=== PATIENT | male | born 1990 | race Caucasian/White ===

== ENCOUNTER 2019-07-05 15:57 | Inpatient (IN) | payer MEDICAID ==
[~2019-07-05] VITALS: Ht 177.8 cm; Wt 70.3 kg
[2019-07-05 16:01] VITALS: BP_SYST 145
--- NOTE | 2019-07-05 16:10 | NUR ---
Placed in room 8 . Placed on ekg monitor, blood pressure machine and pulse oximeter. To gown for exam. Side rails up. Assumed care.
--- NOTE | 2019-07-05 16:10 | NUR ---
EROS Butcher at bedside examining patient.
--- NOTE | 2019-07-05 16:10 | NUR ---
Patient arrived via POV, AAOx4, accompanied by mother. Patient c/c of withdrawl. Patient has history of alcoholism. The patient states that he was binge drinking for the last 4 days, he primarily drink hard liquor, and then beer. He states he drinks approximately 1/2 pint of liquor, and 1/2 pint of beer daily. He has been on a "medina." Patient states last drink was this morning in an attempt to stop the symptoms of withdrawl. Patients associated symptoms of panic/anxiety, nausea, vomiting bile, diarrhea. Patient notes history of seizures. Patient sates he has not been recently ill, no cough, cold, or fever. Will continue to follow up and monitor.
[2019-07-05] MEDS ORDERED: LORazepam 2 MG/ML VIAL IVP ONE ×2 (16:15→17:30)
[2019-07-05] MEDS ORDERED: ONDANSETRON HCL 4 MG/2 ML VIAL IVP ONE ×2 (16:15→17:30)
[2019-07-05] MEDS ORDERED: FOLIC ACID 5 MG/ML VIAL IV ONE (16:15)
[2019-07-05] MEDS ORDERED: THIAMINE HCL 100 MG/ML VIAL IM ONE (16:15)
[2019-07-05] MEDS ORDERED: NACL 0.9% 1,000 ML IV ONE ×2 (16:15→17:45)
[2019-07-05 16:47] LABS: BASOPHILS % (AUTO) 0.3 % (0.0-2.0); EOSINOPHILS % (AUTO) 0.2 % (0.0-4.0); HEMATOCRIT 41.5 % (36-54); HEMOGLOBIN 13.9 g/dL (14.0-18.0); LYMPHOCYTES # (AUTO) 0.8 K/uL (1.0-5.5); LYMPHOCYTES % (AUTO) 11.3 % (20.5-51.5); MEAN CORPUSCULAR HEMOGLOBIN 29 pg (27-31); MEAN CORPUSCULAR HGB CONC 34 % (32-36); MEAN CORPUSCULAR VOLUME 86 fL (79.0-98.0); MONOCYTES # (AUTO) 0.4 K/uL (0.0-1.0); MONOCYTES % (AUTO) 6.1 % (1.7-9.3); NEUTROPHILS # (AUTO) 5.9 K/uL (1.8-7.7); NEUTROPHILS % (AUTO) 82.1 % (40.0-70.0); PLATELET COUNT (AUTO) 343 K/uL (130-430); RED BLOOD CELL COUNT(AUTO) 4.81 MIL/uL (4.2-6.2); RED CELL DISTRIBUTION WIDTH 13.3 % (9.0-15.0); WHITE BLOOD COUNT (AUTO) 7.2 K/uL (4.8-10.8)
[2019-07-05 16:55] LABS: ANION GAP 16 (5-15); CALCIUM 9.2 mg/dL (8.4-11.0); CHLORIDE 99 mmol/L (98-107); CREATININE 0.79 mg/dL (0.55-1.30); GLUCOSE 135 mg/dL (70-99); POTASSIUM 3.3 mmol/L (3.5-5.1); SODIUM SERUM 136 mmol/L (136-145); UREA NITROGEN, BLOOD 9 mg/dL (8-21)
[2019-07-05 16:56] LABS: GFR AFRICAN AMERICAN 149 mL/min (>90)
[2019-07-05 17:03] LABS: ALANINE AMINOTRANSFERASE 103 U/L (12-78); ALBUMIN 4.6 g/dL (3.4-4.8); ASPARTATE AMINOTRANSFERASE 74 U/L (10-37); LIPASE 113 U/L (73-393)
[2019-07-05 17:04] LABS: ALCOHOL, BLOOD < 3 mg/dL (<10)
[2019-07-05] MEDS ORDERED: POTASSIUM CHLORIDE 20 MEQ TAB.PRT.SR PO ONE (17:30)
[2019-07-05] MEDS ORDERED: ONDANSETRON HCL 4 MG/2 ML VIAL IVP PRN (18:15)
[2019-07-05] MEDS ORDERED: ACETAMINOPHEN 325 MG TABLET PO PRN (18:15)
[2019-07-05] MEDS ORDERED: HYDROcodone/ACETAMIN 5-325 MG TAB (NORCO/ VICODIN) PO PRN (18:15)
--- NOTE | 2019-07-05 18:37 | NUR ---
Patient will be admitted to care of Dr. Lopez. Admitted to Telemetry unit. Awaiting room assignment. Belongings list completed. Complete and up to date summary report printed. SBAR report to be given at bedside with opportunity for questions.
[2019-07-05 19:16] LABS: INR 1.1 (0.80-1.20); PROTHROMBIN TIME 10.6 SECS (9.5-12.5)
--- NOTE | 2019-07-05 19:21 | NUR ---
ADMISSION NOTE Received patient from ER via [facility]. Patient admitted with diagnosis of seizures. Patient is awake, alert, oriented X4. Patient oriented to hospital room, call light, toileting, pain management and safety-teach back done. Personal belongings checked and Belongings List documented. Call light within reach. Addendum: 07/05/19 at 1949 by Gemma Watters RN diagnosis of etoh withdrawal
--- NOTE | 2019-07-05 19:30 | NUR ---
OPENING NOTES RECEIVED PATIENT FROM ER FOR ALCOHOL WITHDRAWAL ACCOMPANIED BY MOTHER AT BEDSIDE. PATIENT AAO X4. BREATHING UNLABORED ON ROOM AIR. NO C/O PAIN AT THIS TIME. RFA IV LINE INTACT. VITAL SIGNS STABLE. BED IN LOWEST LOCKED POSITION WITH ALARM ON. SIDE RAILS PADDED FOR SEIZURE PRECAUTIONS. PATIENT ORIENTED TO ROOM, CALL LIGHT SYSTEM TV REMOTE AND BED CONTROLS.
[2019-07-05 19:33] LABS: THYROID STIMULATING HORMONE 1.5 uIu/mL (0.36-3.74)
[2019-07-05 19:50] VITALS: BP_SYST 120
[2019-07-05] MEDS ORDERED: LORazepam 1 MG TABLET PO PRN (21:00)
[2019-07-05] MEDS ORDERED: LORazepam 2 MG/ML VIAL IVP PRN (21:00)
[2019-07-05] MEDS: DOCUSATE SODIUM 100 MG CAPSULE PO SCH (21:00)
--- NOTE | 2019-07-05 22:00 | NUR ---
ROUNDS PATIENT RESTING IN BED. NO DISTRESS NOTED. CALL LIGHT WITH IN REACH.
[2019-07-05 23:00] VITALS: BP_SYST 133
[2019-07-05] MEDS: NACL 0.9% 1,000 ML IV SCH (23:00)
--- NOTE | 2019-07-05 23:00 | NUR ---
IVF PATIENT STARTED ON NS @ 100 ML/HR ORDERED. TOLERATING PO FLUIDS AT THIS TIME. NO C/O NAUSEA OR VOMITING.
--- NOTE | 2019-07-06 01:00 | NUR ---
ROUNDS PATIENT RESTING IN BED. BREATHING UNLABORED. IVF INFUSING. CALL LIGHT WITH IN REACH.
--- NOTE | 2019-07-06 04:09 | NUR ---
ROUNDS PATIENT CONDITION UNCHANGED. NO DISTRESS NOTED.
[2019-07-06 06:16] LABS: CHOLESTEROL 178 mg/dL (<200); HDL CHOLESTEROL 76 mg/dL (>45); LDL CHOLESTEROL 89 mg/dL (<100); TRIGLYCERIDES 48 mg/dL (30-150)
--- NOTE | 2019-07-06 06:25 | NUR ---
NAUSEATED PATIENT MEDICATED WITH ZOFRAN FOR C/O NAUSEA AND ATIVAN 1 MG PO FOR C/O OF ANXIETY/TREMORS.
--- NOTE | 2019-07-06 06:36 | NUR ---
CLOSING NOTES PATIENT RESTING IN BED. NO DISTRESS NOTED. IVF INFUSING WITH IV LINE INTACT. PATIENT NEEDS ATTENDED. BED IN LOWEST LOCKED POSITION. SEIZURE PRECAUTIONS IN PLACED. PATIENT REFUSED TO WEAR HOSPITAL GOWN.
--- NOTE | 2019-07-06 07:43 | NUR ---
INITIAL NOTE PT RESTING IN BED, NO ACUTE DISTRESS NOTED, BREATHING EVEN AND UNLABORED. MOTHER AT BEDSIDE. IVF INFUSING WELL. CALL LIGHT WITHIN REACH, BED IN LOW AND LOCKED POSITION WITH BED ALARM ON.
[2019-07-06 08:00] VITALS: BP_SYST 134
[2019-07-06] MEDS: NACL 0.9% 1,000 ML IV SCH (08:40)
[2019-07-06] MEDS: DOCUSATE SODIUM 100 MG CAPSULE PO SCH ×2 (08:41→09:00)
[2019-07-06] MEDS ORDERED: THIAMINE HCL 100 MG TABLET PO SCH (09:00)
[2019-07-06] MEDS ORDERED: MULTIVITAMINS TAB 1 TABLET PO SCH (09:00)
[2019-07-06] MEDS ORDERED: FOLIC ACID 1 MG TABLET PO SCH (09:00)
--- NOTE | 2019-07-06 09:40 | NUR ---
RN ROUNDS PT RESTING IN BED, BREATHING EVEN AND UNLABORED, NO ACUTE DISTRESS NOTED. MOTHER AT BEDSIDE.
--- NOTE | 2019-07-06 11:20 | NUR ---
DR. TOMAS SPOKE WITH MD AT NURSING STATION. INFORMED MD THAT PT HAS MILD SHAKES AND REFUSES ATIVAN AT THIS TIME, US ABDOMEN WAS DONE AND RESULTS WERE READ TO . TO KEEP PT ONE MORE NIGHT AND CONTINUE POC.
--- NOTE | 2019-07-06 11:34 | NUR ---
SS NOTE/DCP: WILDLIFE BIOLOGY TECHNICIAN was referred by nursing to see patient for ETOH/DCP. Demographic information updated (phone # [phone]). WILDLIFE BIOLOGY TECHNICIAN met with patient and patient's mother at bedside. WILDLIFE BIOLOGY TECHNICIAN informed pt of reason for visit; pt requested to be interviewed alone, mother waited in the ICU waiting room. Pt is a 29 year old single male who came in via ED via private vehicle for "seizure" or alcohol withdrawal. Pt was cooperative during the interview. Pt appeared to be well-groomed, normal mood and affect were appropriate for the situation. Pt's thought process were intact (able to answer inquires), good eye contact and normal speech. Pt was alert and oriented x4 (person, place, time, situation). Pt lives with his 62 year old handicap father. 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 Pt moved here from the [place]" a month ago. Pt does not have a source of income but states "mom gives me money for the meanwhile". Pt is independent with ADL's and does not utilize any DME and no PCP in the area. Per patient, he has been drinking for 10 years now but prior to admission, he was binge drinking since Saturday (06/29) through Saturday (07/04). Pt has history of binge drinking 3x in the past. Pt states he drinks beer, whisky and vodka but this current binge is a mixture of beer with vodka. Pt states his trigger for drinking is "boredom". Pt states on Saturday, he was sweating profusely, anxiety, and seizures, prompting him to come in. Pt admits having a problem with alcohol and is willing to get help, "after the holidays". Pt states he had DUI in 2016 and was ordered to attend AA meetings; pt finished the mandate. Pt denies problems with the law currently. Pt states he goes to AA meetings from 1x/week to 1x/month, and less this time around due to moving in [place] from the [place] a month ago. Pt states AA meetings "helps a little bit" and is planning to go back to AA once settled in his new home. Pt states he has undiagnosed depression and anxiety and is not seeing a therapist currently or in the past. Per mom, pt's father is also an alcoholic and at one point, was homeless for 10 years and a substance abuser. Pt states he has a good relationship with his parents but states "I know my parents are scared I might ". Pt identifies his mother as his support system. Pt states his goal is to "avoid alcohol 100%". WILDLIFE BIOLOGY TECHNICIAN re-educated pt on the importance of unsafe detox; pt understood. WILDLIFE BIOLOGY TECHNICIAN provided pt with Substance abuse facilities/[facility] detox facilities, [facility] and [facility] list. No further SS needs identified at this time, but WILDLIFE BIOLOGY TECHNICIAN will remain available for emotional support and when needed.
--- NOTE | 2019-07-06 11:40 | NUR ---
RN ROUNDS PT RESTING IN BED, NO ACUTE DISTRESS NOTED, MOTHER AT BEDSIDE. WILL CONTINUE TO MONITOR.
--- NOTE | 2019-07-06 13:44 | NUR ---
SPOKE W/ DR. TOMAS CLARIFIED WITH MD THAT PT IS CLEARED TO BE DISCHARGE TODAY. MD WILL PUT IN NEW PRESCRIPTIONS. VERIFIED DISCHARGE ORDER WITH TELEPHONE READ BACK.
[2019-07-06 13:47] VITALS: BP_SYST 133
[2019-07-06] MEDS ORDERED: LIB10 PO (13:49)
[2019-07-06 14:02] VITALS: BP_SYST 133
--- NOTE | 2019-07-06 14:26 | NUR ---
DISCHARGE DISCHARGE PACKET WITH INSTRUCTIONS AND PRESCRIPTIONS GIVEN TO PT. ALL BELONGINGS WITH PT. IV CATHETER REMOVED, CATHETER INTACT, NO BLEEDING. ID HOSPITAL BAND REMOVED. EDUCATED PT ON SAFETY AND USE OF WHEELCHAIR. PT VERBALIZED UNDERSTANDING, PT REFUSING WHEELCHAIR. PT AMBULATES WITH STEADY GAIT. ESCORTED PT TO HOSPITAL PARKING ALONGSIDE MOTHER, DUGLAS WHO WILL BE TAKING PT HOME IN PRIVATE AUTO.
== END 2019-07-06 14:26 | disposition home or self-care (01) | DRG 280 ==
LOC: SED 15:57 → STU 18:37
PROVIDERS: ADMIT Student in an Organized Health Care Education/Training Program; ATTEND Student in an Organized Health Care Education/Training Program
DX: K70.30 Alcoholic cirrhosis of liver without ascites (principal); E87.1 Hypo-osmolality and hyponatremia; F10.10 Alcohol abuse, uncomplicated; F41.9 Anxiety disorder, unspecified; R74.0 Nonspecific elevation of levels of transaminase and lactic acid dehydrogenase [LDH]; Z82.49 Family history of ischemic heart disease and other diseases of the circulatory system; Z83.3 Family history of diabetes mellitus; Z71.41 Alcohol abuse counseling and surveillance of alcoholic
CPT/HCPCS: 36415; 71045; 76700-TC; 80053; 80061; 82140-TC; 83036; 83605; 83690-TC; 83735-TC; 83880; 84100-TC; 84443-TC; 84484; 85025; 85610-TC; 85730-TC; 93005; 96361; 96374; 96375; 96376; 99285; G0378; G0482; J2060; J2405; J3411; J3490; J7030

== ENCOUNTER 2019-09-02 07:38 | Emergency (ER) | payer MEDICAID ==
[~2019-09-02] VITALS: Ht 177.8 cm; Wt 65.8 kg
[~2019-09-02 07:38] MED LIST: LIB10 PO
[2019-09-02 07:40] VITALS: BP_SYST 132
[2019-09-02 09:00] VITALS: BP_SYST 132
== END 2019-09-02 09:00 | disposition home or self-care (01) ==
LOC: SED 07:38
DX: S42.031A Displaced fracture of lateral end of right clavicle, initial encounter for closed fracture (principal); X58.XXXA Exposure to other specified factors, initial encounter; Y93.J2 Activity, drum and other percussion instrument playing; Y92.89 Other specified places as the place of occurrence of the external cause; Y99.8 Other external cause status
CPT/HCPCS: 73030; 99283

== ENCOUNTER 2019-10-25 13:44 | Emergency (ER) | payer MEDICAID ==
[~2019-10-25] VITALS: Ht 172.7 cm; Wt 59.0 kg
[2019-10-25 13:57] VITALS: BP_SYST 134
[2019-10-25] MEDS ORDERED: NACL 0.9% 1,000 ML IV ONE ×2 (14:04→17:00)
[2019-10-25] MEDS ORDERED: FOLIC ACID 1 MG, THIAMINE HCL 100 MG, MAGNESIUM SULFATE 1 GM, MVI 10 ML in NACL 0.9% 1,... IV ONE (14:15)
[2019-10-25] MEDS ORDERED: ONDANSETRON HCL 4 MG/2 ML VIAL IVP ONE (14:15)
[2019-10-25] MEDS ORDERED: THIAMINE HCL 100 MG/ML VIAL ONE (14:34)
[2019-10-25] MEDS ORDERED: MAGNESIUM SULFATE 1 GM/2 ML VIAL ONE (14:34)
[2019-10-25] MEDS ORDERED: FOLIC ACID 5 MG/ML VIAL IV ONE (14:34)
[2019-10-25 15:03] LABS: BASOPHILS % (AUTO) 0.3 % (0.0-2.0); EOSINOPHILS # (AUTO) 0.1 K/uL (0.0-0.4); EOSINOPHILS % (AUTO) 2.2 % (0.0-4.0); HEMATOCRIT 41.6 % (36-54); HEMOGLOBIN 13.7 g/dL (14.0-18.0); LYMPHOCYTES # (AUTO) 1.2 K/uL (1.0-5.5); MEAN CORPUSCULAR HEMOGLOBIN 28 pg (27-31); MEAN CORPUSCULAR HGB CONC 33 % (32-36); MEAN CORPUSCULAR VOLUME 86 fL (79.0-98.0); MONOCYTES # (AUTO) 0.4 K/uL (0.0-1.0); MONOCYTES % (AUTO) 8.3 % (1.7-9.3); NEUTROPHILS # (AUTO) 3.1 K/uL (1.8-7.7); NEUTROPHILS % (AUTO) 64.2 % (40.0-70.0); PLATELET COUNT (AUTO) 333 K/uL (130-430); RED BLOOD CELL COUNT(AUTO) 4.82 MIL/uL (4.2-6.2); RED CELL DISTRIBUTION WIDTH 13.2 % (9.0-15.0); WHITE BLOOD COUNT (AUTO) 4.8 K/uL (4.8-10.8)
[2019-10-25 15:08] LABS: PROTHROMBIN TIME 9.9 SECS (9.5-12.5)
[2019-10-25 15:24] LABS: ANION GAP 17 (5-15); CALCIUM 8.5 mg/dL (8.4-11.0); CHLORIDE 99 mmol/L (98-107); CREATININE 0.81 mg/dL (0.55-1.30); GLUCOSE 92 mg/dL (70-99); POTASSIUM 3.5 mmol/L (3.5-5.1); SODIUM SERUM 138 mmol/L (136-145); UREA NITROGEN, BLOOD 7 mg/dL (8-21)
[2019-10-25 15:26] LABS: GFR AFRICAN AMERICAN 145 mL/min (>90)
[2019-10-25 15:43] LABS: ALANINE AMINOTRANSFERASE 107 U/L (12-78); ALBUMIN 4.7 g/dL (3.4-4.8); ALCOHOL, BLOOD 163 mg/dL (<10); AMYLASE 40 U/L (0-100); ASPARTATE AMINOTRANSFERASE 97 U/L (10-37); LIPASE 96 U/L (73-393); TOTAL BILIRUBIN 0.8 mg/dL (0.0-1.0)
[2019-10-25 15:45] LABS: ACETAMINOPHEN < 1 ug/mL (1-30)
[2019-10-25 16:13] LABS: CKMB RELATIVE INDEX 0.9 (0.0-2.9); CREATINE KINASE MB 3.3 ng/mL (0-3.6)
[2019-10-25 16:26] LABS: BILIRUBIN,URINE NEGATIVE (NEGATIVE); BLOOD, URINE NEGATIVE (NEGATIVE); CLARITY/URINE CLEAR (CLEAR); COLOR,URINE YELLOW (YELLOW); GLUCOSE,URINE NEGATIVE (NEGATIVE); KETONES,URINE 3+ (NEGATIVE); LEUKOCYTE ESTERASE ,URINE NEGATIVE (NEGATIVE); NITRITE, URINE NEGATIVE (NEGATIVE); PROTEIN URINE 1+ (NEGATIVE); UROBILINOGEN,URINE 0.2 (0.2-1.0)
[2019-10-25 16:52] LABS: WBC,URINE 0-3 /HPF (0-3)
[2019-10-25 16:53] LABS: BACTERIA,URINE FEW /HPF (None Seen); YEAST,URINE Few /HPF (None Seen)
[2019-10-25 16:54] LABS: TRICHOMONAS,URINE None Seen /HPF (None Seen)
[2019-10-25 17:03] LABS: BENZODIAZEPINE, URINE POSITIVE (NEG <=150)
[2019-10-25 17:04] LABS: BARBITURATE, URINE NEGATIVE (NEG <=200); COCAINE, URINE NEGATIVE (NEG <=150); METHAMPHETAMINES SCREEN,URINE NEGATIVE (NEG <=500); URINE AMPHETAMINE NEGATIVE (NEG <=500); URINE METHADONE NEGATIVE (NEG <=200)
[2019-10-25 17:05] LABS: CANNABINOID, URINE POSITIVE (NEG <=50); OPIATE, URINE NEGATIVE (NEG <=100); PHENCYCLIDINE SCREEN,URINE NEGATIVE (NEG <=25); UR TRICYCLIC ANTIDEPRESSANTS NEGATIVE (NEG <=300); URINE OXYCODONE SCREEN NEGATIVE (NEG <=100); URINE PROPOXYPHENE SCREEN NEGATIVE (NEG <=300)
[2019-10-25 17:52] VITALS: BP_SYST 119
== END 2019-10-25 17:52 | disposition home or self-care (01) ==
LOC: SED 13:44
DX: F10.239 Alcohol dependence with withdrawal, unspecified (principal); F41.9 Anxiety disorder, unspecified; R74.0 Nonspecific elevation of levels of transaminase and lactic acid dehydrogenase [LDH]; K70.10 Alcoholic hepatitis without ascites; F12.10 Cannabis abuse, uncomplicated; Y90.6 Blood alcohol level of 120-199 mg/100 ml; Z79.899 Other long term (current) drug therapy
CPT/HCPCS: 36415; 80053; 80307; 81000; 82150; 82550; 82553; 83605; 83690; 84484; 85025; 85610; 85730; 87040; 93005; 96365; 96366; 96375; 99284; G0480; G0481; G0482; J2405; J7030; J3411; J3475; J3490

== ENCOUNTER 2019-12-21 07:47 | Emergency (ER) | payer MEDICAID ==
[~2019-12-21] VITALS: Ht 177.8 cm; Wt 65.8 kg
[2019-12-21 07:53] VITALS: BP_SYST 155
--- NOTE | 2019-12-21 07:53 | NUR ---
Patient to ER bed 03 to gown for evaluation. Side rails up.
--- NOTE | 2019-12-21 07:55 | NUR ---
Patient arrived in the ED c/o alcohol withdrawal that started this morning, last drink was at 1900 yesterday - Vodka. Took Librium at 0600 today. Denied any chest pain or shortness of breath. Denied any fevers, chills, or vomiting. Patient is alert and oriented x4, respirations even and unlabored, speaking in full sentences, and ambulating with a steady gait. VSS, pain level 7/10. Informed of the approximate wait time. Instructed to notify ED staff for any changes in condition or worsening of symptoms. Patient verbalized understanding.
--- NOTE | 2019-12-21 08:05 | NUR ---
ER Dr. Nguyễn at bedside examining patient.
--- NOTE | 2019-12-21 08:06 | NUR ---
# 18 gauge angiocath placed to LAC. Use of asceptic technique. Opsite placed over site. Blood return noted. Flushed with 10 cc of normal saline. No evidence of infiltration noted. Patient tolerated well.
--- NOTE | 2019-12-21 08:13 | NUR ---
Administered Ativan IVP and NS as ordered by Dr. Nguyễn. Patient tolerated the medications well. See eMAR for details.
[2019-12-21] MEDS ORDERED: LORazepam 2 MG/ML VIAL IVP ONE (08:15)
[2019-12-21] MEDS ORDERED: NACL 0.9% 1,000 ML IV ONE (08:15)
[2019-12-21 08:18] LABS: BASOPHILS % (AUTO) 0.4 % (0.0-2.0); EOSINOPHILS % (AUTO) 0.6 % (0.0-4.0); HEMATOCRIT 42.6 % (36-54); HEMOGLOBIN 14.3 g/dL (14.0-18.0); LYMPHOCYTES # (AUTO) 0.7 K/uL (1.0-5.5); LYMPHOCYTES % (AUTO) 11.7 % (20.5-51.5); MEAN CORPUSCULAR HEMOGLOBIN 29 pg (27-31); MEAN CORPUSCULAR HGB CONC 34 % (32-36); MEAN CORPUSCULAR VOLUME 86 fL (79.0-98.0); MONOCYTES # (AUTO) 0.4 K/uL (0.0-1.0); MONOCYTES % (AUTO) 7.3 % (1.7-9.3); NEUTROPHILS # (AUTO) 4.5 K/uL (1.8-7.7); PLATELET COUNT (AUTO) 281 K/uL (130-430); RED BLOOD CELL COUNT(AUTO) 4.96 MIL/uL (4.2-6.2); RED CELL DISTRIBUTION WIDTH 14.3 % (9.0-15.0); WHITE BLOOD COUNT (AUTO) 5.6 K/uL (4.8-10.8)
[2019-12-21 08:41] LABS: CALCIUM 9.1 mg/dL (8.4-11.0); CREATININE 0.81 mg/dL (0.55-1.30); POTASSIUM 3.8 mmol/L (3.5-5.1)
[2019-12-21 09:11] VITALS: BP_SYST 131
--- NOTE | 2019-12-21 09:11 | NUR ---
Patient given written and verbal discharge instructions and verbalizes understanding. ER MD discussed with patient the results and treatment provided. Patient in stable condition. ID arm band removed. IV catheter removed intact and dressing applied, no active bleeding. Rx of Ativan given. Patient educated on pain management and to follow up with PMD. Pain Scale 0/10. Opportunity for questions provided and answered. Medication side effect fact sheet provided.
== END 2019-12-21 09:11 | disposition home or self-care (01) ==
LOC: SED 07:47
DX: F10.239 Alcohol dependence with withdrawal, unspecified (principal); R11.2 Nausea with vomiting, unspecified; Y90.9 Presence of alcohol in blood, level not specified
CPT/HCPCS: 36415; 80048; 85025; 96361; 96374; 99283; J2060; J7030

== ENCOUNTER 2020-01-04 10:32 | Emergency (ER) | payer MEDICAID ==
[~2020-01-04] VITALS: Ht 177.8 cm; Wt 68.0 kg
[2020-01-04 10:37] VITALS: BP_SYST 132
--- NOTE | 2020-01-04 10:47 | NUR ---
Patient to ER bed 7 to gown for evaluation. Side rails up.
--- NOTE | 2020-01-04 10:48 | NUR ---
Patient came from home for evaluation. Patient is a daily drinker who is complaining of mild abdominal pain, nausea, vomiting, bright red bloody stool since this morning.
--- NOTE | 2020-01-04 11:00 | NUR ---
ER at bedside examining patient.
[2020-01-04 11:11] LABS: BASOPHILS % (AUTO) 0.8 % (0.0-2.0); EOSINOPHILS % (AUTO) 0.4 % (0.0-4.0); HEMATOCRIT 41.8 % (36-54); HEMOGLOBIN 13.6 g/dL (14.0-18.0); LYMPHOCYTES # (AUTO) 0.8 K/uL (1.0-5.5); LYMPHOCYTES % (AUTO) 19.2 % (20.5-51.5); MEAN CORPUSCULAR HEMOGLOBIN 29 pg (27-31); MEAN CORPUSCULAR HGB CONC 33 % (32-36); MEAN CORPUSCULAR VOLUME 88 fL (79.0-98.0); MONOCYTES # (AUTO) 0.3 K/uL (0.0-1.0); MONOCYTES % (AUTO) 6.7 % (1.7-9.3); NEUTROPHILS # (AUTO) 3.1 K/uL (1.8-7.7); NEUTROPHILS % (AUTO) 72.9 % (40.0-70.0); PLATELET COUNT (AUTO) 466 K/uL (130-430); RED BLOOD CELL COUNT(AUTO) 4.75 MIL/uL (4.2-6.2); RED CELL DISTRIBUTION WIDTH 14.9 % (9.0-15.0); WHITE BLOOD COUNT (AUTO) 4.2 K/uL (4.8-10.8)
[2020-01-04] MEDS ORDERED: PANTOPRAZOLE SODIUM 40 MG/VIAL (PROTONIX) IVP ONE (11:11)
[2020-01-04 11:28] LABS: CALCIUM 8.9 mg/dL (8.4-11.0); CREATININE 0.79 mg/dL (0.55-1.30); POTASSIUM 3.9 mmol/L (3.5-5.1)
[2020-01-04 11:29] LABS: PROTHROMBIN TIME 9.8 SECS (9.5-12.5)
[2020-01-04 11:34] LABS: ALBUMIN 4.6 g/dL (3.4-4.8); TOTAL BILIRUBIN 0.4 mg/dL (0.0-1.0)
[2020-01-04] MEDS ORDERED: NACL 0.9% 1,000 ML IV ONE (11:45)
[2020-01-04] MEDS ORDERED: ONDANSETRON HCL 4 MG/2 ML VIAL IVP ONE (11:45)
[2020-01-04] MEDS ORDERED: LIDOCAINE 1%, 20 ML MDV 20 ML ONE (12:10)
[2020-01-04 13:36] VITALS: BP_SYST 122
--- NOTE | 2020-01-04 13:39 | NUR ---
Patient given written and verbal discharge instructions and verbalizes understanding. ER MD discussed with patient the results and treatment provided. Patient in stable condition. ID arm band removed. IV catheter removed intact and dressing applied, no active bleeding. Rx of Pepcid given. Patient educated on pain management and to follow up with PMD. Pain Scale 0/10 Opportunity for questions provided and answered. Medication side effect fact sheet provided.
== END 2020-01-04 13:36 | disposition home or self-care (01) ==
LOC: SED 10:32
DX: K29.20 Alcoholic gastritis without bleeding (principal); R11.2 Nausea with vomiting, unspecified; F10.229 Alcohol dependence with intoxication, unspecified; F17.210 Nicotine dependence, cigarettes, uncomplicated; F12.90 Cannabis use, unspecified, uncomplicated; Y90.0 Blood alcohol level of less than 20 mg/100 ml
CPT/HCPCS: 36415; 80053; 85025; 85610; 85730; 96361; 96374; 96375; 99284; C9113; G0482; J2001; J2405; J7030

== ENCOUNTER 2020-02-21 10:42 | Emergency (ER) | payer MEDICAID ==
[~2020-02-21] VITALS: Ht 177.8 cm; Wt 65.8 kg
[2020-02-21 10:55] VITALS: BP_SYST 141
[2020-02-21 11:21] LABS: BASOPHILS % (AUTO) 0.3 % (0.0-2.0); EOSINOPHILS % (AUTO) 0.6 % (0.0-4.0); HEMATOCRIT 43.3 % (36-54); HEMOGLOBIN 14.1 g/dL (14.0-18.0); LYMPHOCYTES # (AUTO) 0.9 K/uL (1.0-5.5); LYMPHOCYTES % (AUTO) 13.4 % (20.5-51.5); MEAN CORPUSCULAR HEMOGLOBIN 29 pg (27-31); MEAN CORPUSCULAR HGB CONC 33 % (32-36); MEAN CORPUSCULAR VOLUME 88 fL (79.0-98.0); MONOCYTES # (AUTO) 0.3 K/uL (0.0-1.0); NEUTROPHILS # (AUTO) 5.6 K/uL (1.8-7.7); NEUTROPHILS % (AUTO) 81.7 % (40.0-70.0); PLATELET COUNT (AUTO) 342 K/uL (130-430); RED BLOOD CELL COUNT(AUTO) 4.94 MIL/uL (4.2-6.2); WHITE BLOOD COUNT (AUTO) 6.9 K/uL (4.8-10.8)
[2020-02-21 11:33] LABS: CALCIUM 9.2 mg/dL (8.4-11.0); CREATININE 0.83 mg/dL (0.55-1.30); POTASSIUM 3.6 mmol/L (3.5-5.1)
[2020-02-21] MEDS: KCL 20 mEq in 100 mL (PREMIX) 100 ML IV ONE (11:36)
[2020-02-21] MEDS: NACL 0.9% 2,000 ML IV ONE (11:37)
[2020-02-21] MEDS: HALOPERIDOL LACTATE 5 MG/ML VIAL IVP ONE (11:37)
[2020-02-21] MEDS: METOCLOPRAMIDE HCL 10 MG/2 ML VIAL IVP ONE (11:38)
[2020-02-21 11:39] LABS: ALBUMIN 4.8 g/dL (3.4-4.8); TOTAL BILIRUBIN 0.9 mg/dL (0.0-1.0)
[2020-02-21 14:57] VITALS: BP_SYST 126
== END 2020-02-21 14:58 | disposition home or self-care (01) ==
LOC: SED 10:42
DX: F10.239 Alcohol dependence with withdrawal, unspecified (principal); F12.929 Cannabis use, unspecified with intoxication, unspecified; R11.2 Nausea with vomiting, unspecified; Y90.0 Blood alcohol level of less than 20 mg/100 ml; Z79.899 Other long term (current) drug therapy
CPT/HCPCS: 36415; 80053; 85025; 96361; 96374; 96375; 99284; G0482; J1630; J2765; J3480; J7030

== ENCOUNTER 2020-03-08 13:04 | Emergency (ER) | payer MEDICAID ==
[~2020-03-08] VITALS: Ht 175.3 cm; Wt 68.0 kg
[2020-03-08 13:11] VITALS: BP_SYST 121
--- NOTE | 2020-03-08 13:14 | NUR ---
pt placed to bed 5 with right hand wraped. bleeding controlled. C/O having a Laceration and called 911.
[2020-03-08] MEDS ORDERED: LIDOCAINE 1% 10 MG/ML, 20 ML MDV INJ ONE (13:30)
--- NOTE | 2020-03-08 13:32 | NUR ---
DR BECK IN TO ASSESS
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
--- NOTE | 2020-03-08 13:40 | NUR ---
LAC TO RIGHT THUMB, BLEEDING MODERATLY, DR. BECK AT THE BEDSIDE FOR SUTURES. PT TOLERATING WELL
[2020-03-08] MEDS ORDERED: BACITRACIN 1 GM OINT TP ONE (14:19)
--- NOTE | 2020-03-08 14:27 | NUR ---
LAC IRRIGATED, BACITRACIN APPLIED, DRESSING APPLIED
--- NOTE | 2020-03-08 14:27 | NUR ---
Patient given written and verbal discharge instructions and verbalizes understanding. ER MD discussed with patient the results and treatment provided. Patient in stable condition. ID arm band removed. . Patient educated on pain management and to follow up with PMD. Pain Scale 0/10. Opportunity for questions provided and answered. Medication side effect fact sheet provided.
[2020-03-08 14:28] VITALS: BP_SYST 121
== END 2020-03-08 14:28 | disposition home or self-care (01) ==
LOC: SED 13:04
DX: S61.011A Laceration without foreign body of right thumb without damage to nail, initial encounter (principal); G40.909 Epilepsy, unspecified, not intractable, without status epilepticus; W26.0XXA Contact with knife, initial encounter; Y93.89 Activity, other specified; Y92.89 Other specified places as the place of occurrence of the external cause; Y99.8 Other external cause status
CPT/HCPCS: 12002; 99282; J2001

== ENCOUNTER 2020-03-10 10:32 | Emergency (ER) | payer MEDICAID ==
[~2020-03-10] VITALS: Ht 177.8 cm; Wt 61.2 kg
[2020-03-10 10:39] VITALS: BP_SYST 136
[2020-03-10 10:54] VITALS: BP_SYST 136
== END 2020-03-10 10:55 | disposition home or self-care (01) ==
LOC: SED 10:32
DX: S61.011D Laceration without foreign body of right thumb without damage to nail, subsequent encounter (principal); F10.229 Alcohol dependence with intoxication, unspecified; X58.XXXD Exposure to other specified factors, subsequent encounter
CPT/HCPCS: 99282

== ENCOUNTER 2020-03-18 09:21 | Emergency (ER) | payer MEDICAID ==
[~2020-03-18] VITALS: Ht 175.3 cm; Wt 63.5 kg
[2020-03-18 09:31] VITALS: BP_SYST 145
--- NOTE | 2020-03-18 09:38 | NUR ---
Patient to ER bed 04 to gown for evaluation. Side rails up.
--- NOTE | 2020-03-18 09:40 | NUR ---
Pt walked in to ER with c/o hand pain 01/28. Reports punching a wall last night. Denies any other trauma. V/S stable, pt is afebrile. Currently sitting at bedside, will continue to monitor.
--- NOTE | 2020-03-18 09:45 | NUR ---
Kb chan in [facility] - 03/18/20 at 1055 by [email or web address] EROS Thomson at bedside examining patient.
--- NOTE | 2020-03-18 09:45 | NUR ---
ER at bedside examining patient.
--- NOTE | 2020-03-18 09:47 | NUR ---
Pt ambulated to x-ray accompanied by staff.
[2020-03-18] MEDS ORDERED: KETOROLAC TROMETHAMINE 60 MG/2 ML VIAL IM ONE (10:15)
--- NOTE | 2020-03-18 11:20 | NUR ---
Ulnar Gutter splint applied to Left hand. + pulse noted. Capillary refill <3 seconds. Patient has ability to move non-splinted digits. Has sensation present to affected site. Skin color within normal limits. Applied for pain management control.
[2020-03-18 11:28] VITALS: BP_SYST 145
--- NOTE | 2020-03-18 11:29 | NUR ---
Patient given written and verbal discharge instructions and verbalizes understanding. ER MD discussed with patient the results and treatment provided. Patient in stable condition. ID arm band removed. No prescriptions given. Patient educated on pain management and to follow up with PMD. Pain Scale 0. Opportunity for questions provided and answered. Medication side effect fact sheet provided.
== END 2020-03-18 11:29 | disposition home or self-care (01) ==
LOC: SED 09:21
DX: S62.343A Nondisplaced fracture of base of third metacarpal bone, left hand, initial encounter for closed fracture (principal); S60.221A Contusion of right hand, initial encounter; F12.90 Cannabis use, unspecified, uncomplicated; Z79.899 Other long term (current) drug therapy; W22.8XXA Striking against or struck by other objects, initial encounter; Y93.89 Activity, other specified; Y92.89 Other specified places as the place of occurrence of the external cause; Y99.8 Other external cause status
CPT/HCPCS: 29125; 73130; 96372; 99283; J1885

== ENCOUNTER 2020-04-15 08:36 | Emergency (ER) | payer MEDICAID ==
[~2020-04-15] VITALS: Ht 177.8 cm; Wt 65.8 kg
[2020-04-15 08:40] VITALS: BP_SYST 143
--- NOTE | 2020-04-15 08:44 | NUR ---
Patient to ER bed 03 to gown for evaluation. Side rails up.
--- NOTE | 2020-04-15 08:45 | NUR ---
Pt walked in to ER with c/o hiccups x4 days and is concerned bc reports he has surgery coming up. V/S stable, pt is afebrile. Currently resting in bed, will continue to monitor.
--- NOTE | 2020-04-15 08:55 | NUR ---
EROS Mueller at bedside examining patient.
[2020-04-15 08:59] VITALS: BP_SYST 143
== END 2020-04-15 09:00 | disposition home or self-care (01) ==
LOC: SED 08:36
DX: R06.6 Hiccough (principal); F10.229 Alcohol dependence with intoxication, unspecified
CPT/HCPCS: 99281

== ENCOUNTER 2020-05-27 08:49 | Emergency (ER) | payer MEDICAID ==
[~2020-05-27] VITALS: Ht 177.8 cm; Wt 65.8 kg
[2020-05-27 08:55] VITALS: BP_SYST 132
[2020-05-27 11:05] VITALS: BP_SYST 132
[2020-05-27] MEDS ORDERED: BACITRACIN 1 GM OINT TP ONE (11:16)
== END 2020-05-27 11:05 | disposition home or self-care (01) ==
LOC: SED 08:49
DX: S01.111A Laceration without foreign body of right eyelid and periocular area, initial encounter (principal); S09.8XXA Other specified injuries of head, initial encounter; F10.229 Alcohol dependence with intoxication, unspecified; W22.8XXA Striking against or struck by other objects, initial encounter; Y93.89 Activity, other specified; Y92.89 Other specified places as the place of occurrence of the external cause; Y99.8 Other external cause status
CPT/HCPCS: 70160-TC; 99283

== ENCOUNTER 2021-02-28 13:10 | Emergency (ER) | payer MEDICAID ==
[~2021-02-28] VITALS: Ht 177.8 cm; Wt 68.0 kg
[2021-02-28 13:21] VITALS: BP_SYST 100
[2021-02-28 14:15] LABS: BASOPHILS % (AUTO) 0.5 % (0.0-2.0); EOSINOPHILS % (AUTO) 0.4 % (0.0-4.0); HEMATOCRIT 40.7 % (36-54); HEMOGLOBIN 13.5 g/dL (14.0-18.0); LYMPHOCYTES # (AUTO) 0.7 K/uL (1.0-5.5); LYMPHOCYTES % (AUTO) 14.2 % (20.5-51.5); MEAN CORPUSCULAR HEMOGLOBIN 28 pg (27-31); MEAN CORPUSCULAR HGB CONC 33 % (32-36); MEAN CORPUSCULAR VOLUME 84 fL (79.0-98.0); MONOCYTES # (AUTO) 0.2 K/uL (0.0-1.0); MONOCYTES % (AUTO) 4.3 % (1.7-9.3); NEUTROPHILS # (AUTO) 4.2 K/uL (1.8-7.7); NEUTROPHILS % (AUTO) 80.6 % (40.0-70.0); PLATELET COUNT (AUTO) 301 K/uL (130-430); RED BLOOD CELL COUNT(AUTO) 4.86 MIL/uL (4.2-6.2); RED CELL DISTRIBUTION WIDTH 15.2 % (9.0-15.0); WHITE BLOOD COUNT (AUTO) 5.2 K/uL (4.8-10.8)
[2021-02-28] MEDS: NACL 0.9% 2,000 ML IV ONE (14:20)
[2021-02-28] MEDS: ONDANSETRON HCL 4 MG/2 ML VIAL IVP ONE (14:21)
[2021-02-28] MEDS: LORazepam 2 MG/ML VIAL IVP ONE (14:21)
[2021-02-28 14:26] LABS: ANION GAP 18 (5-15); CALCIUM 9.4 mg/dL (8.4-11.0); CHLORIDE 94 mmol/L (98-107); CREATININE 0.76 mg/dL (0.55-1.30); GLUCOSE 86 mg/dL (70-99); POTASSIUM 3.7 mmol/L (3.5-5.1); SODIUM SERUM 135 mmol/L (136-145); UREA NITROGEN, BLOOD 6 mg/dL (8-21)
[2021-02-28 14:30] LABS: GFR AFRICAN AMERICAN 155 mL/min (>90); PROTHROMBIN TIME 10.3 SECS (9.5-12.5)
[2021-02-28 14:32] LABS: ALANINE AMINOTRANSFERASE 117 U/L (12-78); ALBUMIN 4.5 g/dL (3.4-4.8); AMYLASE 64 U/L (0-100); ASPARTATE AMINOTRANSFERASE 107 U/L (10-37); LIPASE 119 U/L (73-393); TOTAL BILIRUBIN 1.1 mg/dL (0.0-1.0)
[2021-02-28 14:36] LABS: ALCOHOL, BLOOD < 3 mg/dL (<10)
[2021-02-28 14:49] LABS: ACETONE, SERUM NEGATIVE (NEGATIVE)
[2021-02-28] MEDS ORDERED: LORA-259 PO (15:16)
[2021-02-28 16:00] VITALS: BP_SYST 100
== END 2021-02-28 15:55 | disposition home or self-care (01) ==
LOC: SED 13:10
DX: F10.239 Alcohol dependence with withdrawal, unspecified (principal); Z79.899 Other long term (current) drug therapy; Y90.0 Blood alcohol level of less than 20 mg/100 ml
CPT/HCPCS: 36415; 80053; 82009; 82150; 83605; 83690; 85025; 85610; 85730; 96361; 96374; 96375; 99284; G0482; J2060; J2405; J7030

== ENCOUNTER 2022-04-18 11:51 | Emergency (ER) | payer MEDICAID ==
[~2022-04-18] VITALS: Ht 175.3 cm; Wt 68.0 kg
[~2022-04-18 11:51] MED LIST changes: +CHLO10CA7 PO; -LIB10 PO; +LORA-259 PO
[2022-04-18 12:21] VITALS: BP_SYST 138
[2022-04-18 12:45] LABS: BASOPHILS % (AUTO) 0.5 % (0.0-2.0); EOSINOPHILS # (AUTO) 0.1 K/uL (0.0-0.4); EOSINOPHILS % (AUTO) 1.1 % (0.0-4.0); HEMATOCRIT 43.2 % (36-54); LYMPHOCYTES # (AUTO) 1.4 K/uL (1.0-5.5); LYMPHOCYTES % (AUTO) 26.3 % (20.5-51.5); MEAN CORPUSCULAR VOLUME 88 fL (79.0-98.0); MONOCYTES # (AUTO) 0.3 K/uL (0.0-1.0); MONOCYTES % (AUTO) 5.6 % (1.7-9.3); NEUTROPHILS # (AUTO) 3.6 K/uL (1.8-7.7); NEUTROPHILS % (AUTO) 66.5 % (40.0-70.0); PLATELET COUNT (AUTO) 343 K/uL (130-430); RED BLOOD CELL COUNT(AUTO) 4.91 MIL/uL (4.2-6.2); RED CELL DISTRIBUTION WIDTH 13.5 % (9.0-15.0); WHITE BLOOD COUNT (AUTO) 5.3 K/uL (4.8-10.8)
[2022-04-18 13:07] LABS: ANION GAP 21 (5-15); CALCIUM 8.9 mg/dL (8.4-11.0); CHLORIDE 97 mmol/L (98-107); CREATININE 0.79 mg/dL (0.55-1.30); GLUCOSE 89 mg/dL (70-99); UREA NITROGEN, BLOOD 8 mg/dL (8-21)
[2022-04-18 13:13] LABS: GFR AFRICAN AMERICAN 146 mL/min (>90)
[2022-04-18 13:21] LABS: ALANINE AMINOTRANSFERASE 171 U/L (12-78); ALBUMIN 4.6 g/dL (3.4-4.8); ALCOHOL, BLOOD 371 mg/dL (<10); AMYLASE 38 U/L (0-100); ASPARTATE AMINOTRANSFERASE 129 U/L (10-37); LIPASE 141 U/L (73-393); TOTAL BILIRUBIN 0.8 mg/dL (0.0-1.0)
[2022-04-18 14:18] LABS: ACETONE, SERUM TRACE (NEGATIVE)
== END 2022-04-18 13:00 | disposition left against medical advice (07) ==
LOC: SED 11:51
DX: E87.2 Acidosis (principal); R10.84 Generalized abdominal pain; R11.2 Nausea with vomiting, unspecified; F41.9 Anxiety disorder, unspecified; Z79.899 Other long term (current) drug therapy
CPT/HCPCS: 99283; 80053; 82009; 82150; 83690; 85025; 36415; 83605; G0482

== ENCOUNTER 2022-04-18 17:13 | Emergency (ER) | payer MEDICAID ==
[~2022-04-18] VITALS: Ht 170.2 cm; Wt 73.5 kg
[2022-04-18 17:15] VITALS: BP_SYST 144
--- NOTE | 2022-04-18 17:15 | NUR ---
Patient to ER bed 07 to gown for evaluation. Side rails up.
--- NOTE | 2022-04-18 17:30 | NUR ---
RECEIVED PT FROM [facility]. PT WAS BIBS FOR ETOH WITHDRAWEL. RESP E/U. NO R/A. PT HAS N/V. IV CATH PLACED TO RFA 20. SITE WNL. PT DENIES PAIN. SIDE RAILS UP X2.
[2022-04-18] MEDS ORDERED: ONDANSETRON HCL 4 MG/2 ML VIAL IVP ONE (18:00)
[2022-04-18] MEDS ORDERED: NACL 0.9% 1,000 ML IV ONE (18:00)
[2022-04-18] MEDS ORDERED: LORazepam 2 MG/ML VIAL IVP ONE (18:00)
[2022-04-18] MEDS ORDERED: FOLIC ACID 1 MG, THIAMINE HCL 100 MG, MAGNESIUM SULFATE 1 GM, MVI 10 ML in NACL 0.9% 1,... IV ONE (18:00)
--- NOTE | 2022-04-18 18:00 | NUR ---
Note undone in EDM - 04/18/22 at 1804 by [email or web address] RECEIVED PT FROM [facility]. PT BIBS WITH C/O MECH FALL, PT FELL TO BACK, PT PRESENTS WITH SWELLING TO UPPER CHEST. PT IS AAOX4. RESP E/U. ON R/A. NORMAL S1S2 NOTED. DENIES N/V/D/C. SKIN CDI. DISTAL PULSES NORMAL. DENIES PAIN AT THIS TIME.
--- NOTE | 2022-04-18 18:06 | NUR ---
ER at bedside examining patient.
[2022-04-18 18:45] LABS: BASOPHILS # (AUTO) 0.1 K/uL (0.0-0.2); BASOPHILS % (AUTO) 1.1 % (0.0-2.0); EOSINOPHILS # (AUTO) 0.1 K/uL (0.0-0.4); EOSINOPHILS % (AUTO) 1.6 % (0.0-4.0); HEMATOCRIT 43.3 % (36-54); LYMPHOCYTES # (AUTO) 2.1 K/uL (1.0-5.5); LYMPHOCYTES % (AUTO) 35.8 % (20.5-51.5); MEAN CORPUSCULAR VOLUME 88 fL (79.0-98.0); MONOCYTES # (AUTO) 0.3 K/uL (0.0-1.0); MONOCYTES % (AUTO) 4.9 % (1.7-9.3); NEUTROPHILS # (AUTO) 3.3 K/uL (1.8-7.7); NEUTROPHILS % (AUTO) 56.6 % (40.0-70.0); PLATELET COUNT (AUTO) 345 K/uL (130-430); RED BLOOD CELL COUNT(AUTO) 4.92 MIL/uL (4.2-6.2); RED CELL DISTRIBUTION WIDTH 13.8 % (9.0-15.0); WHITE BLOOD COUNT (AUTO) 5.8 K/uL (4.8-10.8)
[2022-04-18 18:52] LABS: ANION GAP 23 (5-15); CALCIUM 9.1 mg/dL (8.4-11.0); CHLORIDE 94 mmol/L (98-107); GFR AFRICAN AMERICAN 126 mL/min (>90); GLUCOSE 103 mg/dL (70-99); POTASSIUM 3.5 mmol/L (3.5-5.1); UREA NITROGEN, BLOOD 3 mg/dL (8-21)
[2022-04-18] MEDS ORDERED: LORazepam 2 MG/ML VIAL ONE (18:54)
--- NOTE | 2022-04-18 18:55 | NUR ---
SCHEDULED MEDS GIVEN AND TOLERATED WELL.
[2022-04-18 19:09] LABS: ALANINE AMINOTRANSFERASE 159 U/L (12-78); ALBUMIN 4.8 g/dL (3.4-4.8); ALCOHOL, BLOOD 193 mg/dL (<10); ASPARTATE AMINOTRANSFERASE 127 U/L (10-37)
[2022-04-18 19:10] LABS: ACETAMINOPHEN < 1 ug/mL (1-30)
--- NOTE | 2022-04-18 19:22 | NUR ---
PT ENDORSED TO [facility]. ALL QUESTIONS AND CONCERNS ADDRESSED.
[2022-04-18] MEDS ORDERED: THIAMINE HCL 100 MG, MAGNESIUM SULFATE 1 GM in NS 100 ML IV ONE (19:30)
[2022-04-18] MEDS ORDERED: FOLIC ACID 1 MG, MVI 10 ML in NACL 0.9% 1,000 ML IV ONE (19:30)
[2022-04-18 23:55] VITALS: BP_SYST 111
--- NOTE | 2022-04-18 23:57 | NUR ---
Patient to be transferred to [facility]. Receiving facility has accepting physician and available space. ER physician has signed transfer form. Patient or responsible green party has agreed to transfer and signed form. Patient belongings inventoried and will be sent with patient. Copy of nursing notes, lab reports, EKG, Physicians Orders and X-rays to be sent with patient. Report called to Italo GUY at receiving facility. Report also given to ambulance staff. Pt left a/ox4, VSS.
== END 2022-04-18 23:55 | disposition admitted as inpatient to this hospital (09) ==
LOC: SED 17:13
DX: R11.2 Nausea with vomiting, unspecified (principal); F10.239 Alcohol dependence with withdrawal, unspecified; E87.2 Acidosis; R94.5 Abnormal results of liver function studies; Z81.1 Family history of alcohol abuse and dependence; Z79.899 Other long term (current) drug therapy; Z20.822 Contact with and (suspected) exposure to COVID-19; Y90.6 Blood alcohol level of 120-199 mg/100 ml
CPT/HCPCS: 99285; 96365; 96375; 96361; 87426; 80053; 85025; 36415; 96368; G0482; J3490; J2060; J3475; J2405; J3411; J7030; G0480; G0481

== ENCOUNTER 2022-09-30 07:43 | Emergency (ER) | payer MEDICAID ==
[~2022-09-30] VITALS: Ht 172.7 cm; Wt 80.7 kg
[2022-09-30 07:49] VITALS: BP_SYST 165
[2022-09-30] MEDS ORDERED: LORazepam 2 MG/ML VIAL IVP ONE (08:00)
[2022-09-30] MEDS ORDERED: NACL 0.9% 2,000 ML IV ONE (08:00)
[2022-09-30 08:11] LABS: BASOPHILS % (AUTO) 0.5 % (0.0-2.0); EOSINOPHILS % (AUTO) 0.8 % (0.0-4.0); HEMATOCRIT 40.3 % (36-54); HEMOGLOBIN 13.5 g/dL (14.0-18.0); LYMPHOCYTES # (AUTO) 1.5 K/uL (1.0-5.5); LYMPHOCYTES % (AUTO) 26.5 % (20.5-51.5); MEAN CORPUSCULAR HEMOGLOBIN 27 pg (27-31); MEAN CORPUSCULAR HGB CONC 33 % (32-36); MEAN CORPUSCULAR VOLUME 81 fL (79.0-98.0); MONOCYTES # (AUTO) 0.5 K/uL (0.0-1.0); MONOCYTES % (AUTO) 8.8 % (1.7-9.3); NEUTROPHILS # (AUTO) 3.5 K/uL (1.8-7.7); NEUTROPHILS % (AUTO) 63.4 % (40.0-70.0); PLATELET COUNT (AUTO) 338 K/uL (130-430); RED BLOOD CELL COUNT(AUTO) 4.96 MIL/uL (4.2-6.2); RED CELL DISTRIBUTION WIDTH 14.2 % (9.0-15.0); WHITE BLOOD COUNT (AUTO) 5.5 K/uL (4.8-10.8)
[2022-09-30 08:26] LABS: ANION GAP 20 (5-15); CALCIUM 8.8 mg/dL (8.4-11.0); CHLORIDE 97 mmol/L (98-107); CREATININE 0.84 mg/dL (0.55-1.30); GLUCOSE 102 mg/dL (70-99); UREA NITROGEN, BLOOD 11 mg/dL (8-21)
[2022-09-30 08:29] LABS: ALANINE AMINOTRANSFERASE 166 U/L (12-78); ALBUMIN 3.9 g/dL (3.4-4.8); ALCOHOL, BLOOD 53 mg/dL (<10); AMYLASE 75 U/L (0-100); ASPARTATE AMINOTRANSFERASE 96 U/L (10-37); LIPASE 194 U/L (73-393); TOTAL BILIRUBIN 0.8 mg/dL (0.0-1.0)
[2022-09-30 08:30] LABS: GFR AFRICAN AMERICAN 136 mL/min (>90)
[2022-09-30 09:06] LABS: ACETONE, SERUM NEGATIVE (NEGATIVE)
[2022-09-30 09:56] VITALS: BP_SYST 131
[2022-09-30] MEDS ORDERED: LORA-259 PO (12:07)
== END 2022-09-30 15:59 | disposition home or self-care (01) ==
LOC: SED 07:43
DX: F10.10 Alcohol abuse, uncomplicated (principal); F41.9 Anxiety disorder, unspecified; R11.2 Nausea with vomiting, unspecified; Z79.899 Other long term (current) drug therapy; Y90.6 Blood alcohol level of 120-199 mg/100 ml
CPT/HCPCS: 99283; 96374; 96361; 80053; 82009; 82150; 83690; 85025; 36415; 83605; G0482; J2060; J7030

== ENCOUNTER 2023-01-26 23:25 | Emergency (ER) | payer MEDICAID ==
[~2023-01-26] VITALS: Ht 177.8 cm; Wt 68.0 kg
[2023-01-26 23:25] VITALS: BP_SYST 155; PULSE 127; RESP 24; TEMP 98; O2SAT 97
[2023-01-27] MEDS ORDERED: NACL 0.9% 1,000 ML IV ONE
[2023-01-27] MEDS ORDERED: ONDANSETRON HCL 4 MG/2 ML VIAL IVP ONE
[2023-01-27] MEDS ORDERED: LIB25 PO (00:40)
[2023-01-27] MEDS ORDERED: ONDA8TAB60 PO (00:40)
[2023-01-27 01:17] VITALS: BP_SYST 115; PULSE 97; RESP 24; TEMP 98.3; O2SAT 99
== END 2023-01-27 01:29 | disposition home or self-care (01) ==
LOC: SED 23:25
DX: F10.239 Alcohol dependence with withdrawal, unspecified (principal); R50.9 Fever, unspecified; R11.2 Nausea with vomiting, unspecified; Z79.899 Other long term (current) drug therapy; Z20.822 Contact with and (suspected) exposure to COVID-19; Y90.6 Blood alcohol level of 120-199 mg/100 ml
CPT/HCPCS: 99283; 96374; J2405

== ENCOUNTER 2023-04-28 17:28 | Inpatient (IN) | payer MEDICAID ==
[~2023-04-28] VITALS: Ht 162.6 cm; Wt 61.2 kg
[~2023-04-28 17:28] MED LIST changes: -CHLO10CA7 PO; -LORA-259 PO; +THIA100T70 PO
[2023-04-28 17:39] VITALS: BP_SYST 124; PULSE 90; RESP 20; TEMP 98.3; O2SAT 96
[2023-04-28] MEDS ORDERED: ONDANSETRON HCL 4 MG/2 ML VIAL IVP ONE (18:45)
[2023-04-28] MEDS ORDERED: LORazepam 2 MG/ML VIAL IVP ONE (18:45)
[2023-04-28] MEDS ORDERED: NACL 0.9% 1,000 ML IV ONE (18:45)
[2023-04-28 18:51] LABS: ALANINE AMINOTRANSFERASE 95 U/L (12-78); ALBUMIN 4.8 g/dL (3.4-4.8); ALCOHOL, BLOOD 57 mg/dL (<10); ANION GAP 18 (5-15); ASPARTATE AMINOTRANSFERASE 78 U/L (10-37); CALCIUM 8.7 mg/dL (8.4-11.0); CARBON DIOXIDE 24 mmol/L (23-29); CHLORIDE 95 mmol/L (98-107); GFR AFRICAN AMERICAN 143 mL/min (>90); GFR NON AFRICAN-AMERICAN 118 mL/min (>90); GLUCOSE 96 mg/dL (74-106); POTASSIUM 3.5 mmol/L (3.5-5.1); SALICYLATE 1 mg/dL (3-30); SODIUM SERUM 137 mmol/L (136-145); TOTAL BILIRUBIN 0.6 mg/dL (0.0-1.0); TOTAL PROTEIN, SERUM 8.6 g/dL (6.4-8.3); UREA NITROGEN, BLOOD 6 mg/dL (8-21)
[2023-04-28 18:53] LABS: ACETAMINOPHEN < 1 ug/mL (1-30)
[2023-04-28 18:56] LABS: BASOPHILS % (AUTO) 0.2 % (0.0-2.0); EOSINOPHILS # (AUTO) 0.1 K/uL (0.0-0.4); HEMATOCRIT 42.2 % (36-54); HEMOGLOBIN 13.8 g/dL (14.0-18.0); LYMPHOCYTES % (AUTO) 15.9 % (20.5-51.5); MEAN CORPUSCULAR HEMOGLOBIN 29 pg (27-31); MEAN CORPUSCULAR HGB CONC 33 % (32-36); MEAN CORPUSCULAR VOLUME 87 fL (79.0-98.0); MONOCYTES # (AUTO) 0.7 K/uL (0.0-1.0); MONOCYTES % (AUTO) 10.9 % (1.7-9.3); NEUTROPHILS # (AUTO) 4.6 K/uL (1.8-7.7); PLATELET COUNT (AUTO) 260 K/uL (130-430); RED BLOOD CELL COUNT(AUTO) 4.84 MIL/uL (4.2-6.2); RED CELL DISTRIBUTION WIDTH 13.2 % (9.0-15.0); WHITE BLOOD COUNT (AUTO) 6.3 K/uL (4.8-10.8)
[2023-04-28] MEDS ORDERED: LORazepam 2 MG/ML VIAL IVP PRN (23:30)
[2023-04-29 07:35] LABS: BASOPHILS % (AUTO) 0.2 % (0.0-2.0); EOSINOPHILS # (AUTO) 0.1 K/uL (0.0-0.4); HEMATOCRIT 41.7 % (36-54); HEMOGLOBIN 13.3 g/dL (14.0-18.0); LYMPHOCYTES # (AUTO) 1.1 K/uL (1.0-5.5); LYMPHOCYTES % (AUTO) 21.3 % (20.5-51.5); MEAN CORPUSCULAR HEMOGLOBIN 28 pg (27-31); MEAN CORPUSCULAR HGB CONC 32 % (32-36); MEAN CORPUSCULAR VOLUME 88 fL (79.0-98.0); MONOCYTES # (AUTO) 0.5 K/uL (0.0-1.0); MONOCYTES % (AUTO) 10.2 % (1.7-9.3); NEUTROPHILS # (AUTO) 3.5 K/uL (1.8-7.7); NEUTROPHILS % (AUTO) 66.3 % (40.0-70.0); PLATELET COUNT (AUTO) 248 K/uL (130-430); RED BLOOD CELL COUNT(AUTO) 4.75 MIL/uL (4.2-6.2); RED CELL DISTRIBUTION WIDTH 13.6 % (9.0-15.0); WHITE BLOOD COUNT (AUTO) 5.3 K/uL (4.8-10.8)
[2023-04-29 07:55] LABS: CALCIUM 7.3 mg/dL (8.4-11.0); CREATININE 0.63 mg/dL (0.55-1.30); POTASSIUM 3.5 mmol/L (3.5-5.1)
[2023-04-29] MEDS: chlordiazePOXIDE HCL 25 MG CAPSULE PO SCH ×3 (09:24→23:25)
[2023-04-29 10:23] VITALS: BP_SYST 127; PULSE 71; RESP 18; TEMP 97.6
[2023-04-29 10:36] VITALS: O2SAT 99
[2023-04-29] MEDS ORDERED: HYDROcodone/ACETAMIN 5-325 MG TAB (NORCO/ VICODIN) PO PRN ×2 (11:45)
[2023-04-29] MEDS ORDERED: NALOXONE HCL 0.4 MG/ML AMP (NARCAN) IVP PRN ×2 (11:45)
[2023-04-29] MEDS ORDERED: ONDANSETRON HCL 4 MG/2 ML VIAL IVP PRN (11:45)
[2023-04-29] MEDS ORDERED: HYDROcodone/ACETAMIN 10-325 MG TAB PO PRN (11:45)
[2023-04-29] MEDS ORDERED: FOLIC ACID 1 MG, THIAMINE HCL 100 MG, MAGNESIUM SULFATE 1 GM, MVI 10 ML in NACL 0.9% 1,... IV SCH (11:45)
[2023-04-29] MEDS ORDERED: ACETAMINOPHEN 325 MG TABLET PO PRN (11:45)
[2023-04-29] MEDS ORDERED: THIAMINE HCL 100 MG, MAGNESIUM SULFATE 1 GM in NS 100 ML IV SCH (14:00)
[2023-04-29] MEDS ORDERED: FOLIC ACID 1 MG, MVI 10 ML in NACL 0.9% 1,000 ML IV SCH (14:00)
[2023-04-29 16:00] VITALS: BP_SYST 124; PULSE 84; RESP 18; TEMP 97
[2023-04-30] VITALS: BP_SYST 128; PULSE 86; RESP 18; TEMP 97.6; O2SAT 97
[2023-04-30 02:38] VITALS: O2SAT 97
[2023-04-30 06:07] LABS: BASOPHILS % (AUTO) 0.4 % (0.0-2.0); EOSINOPHILS # (AUTO) 0.2 K/uL (0.0-0.4); EOSINOPHILS % (AUTO) 5.1 % (0.0-4.0); HEMATOCRIT 43.9 % (36-54); HEMOGLOBIN 13.9 g/dL (14.0-18.0); LYMPHOCYTES # (AUTO) 1.1 K/uL (1.0-5.5); LYMPHOCYTES % (AUTO) 23.6 % (20.5-51.5); MEAN CORPUSCULAR HEMOGLOBIN 28 pg (27-31); MEAN CORPUSCULAR HGB CONC 32 % (32-36); MEAN CORPUSCULAR VOLUME 89 fL (79.0-98.0); MONOCYTES # (AUTO) 0.3 K/uL (0.0-1.0); MONOCYTES % (AUTO) 6.5 % (1.7-9.3); NEUTROPHILS % (AUTO) 64.4 % (40.0-70.0); PLATELET COUNT (AUTO) 221 K/uL (130-430); RED BLOOD CELL COUNT(AUTO) 4.95 MIL/uL (4.2-6.2); RED CELL DISTRIBUTION WIDTH 13.3 % (9.0-15.0); WHITE BLOOD COUNT (AUTO) 4.7 K/uL (4.8-10.8)
[2023-04-30 07:01] LABS: CALCIUM 7.7 mg/dL (8.4-11.0); CREATININE 0.58 mg/dL (0.55-1.30); POTASSIUM 3.4 mmol/L (3.5-5.1)
[2023-04-30 08:00] VITALS: O2SAT 99
[2023-04-30] MEDS: chlordiazePOXIDE HCL 25 MG CAPSULE PO SCH (09:18)
[2023-04-30] MEDS ORDERED: chlordiazePOXIDE HCL 25 MG CAPSULE PO SCH (21:00)
== END 2023-04-30 16:00 | disposition left against medical advice (07) | DRG 425 ==
LOC: SED 17:28 → STU 23:24
PROVIDERS: ADMIT Specialist; ATTEND Specialist
DX: E87.8 Other disorders of electrolyte and fluid balance, not elsewhere classified (principal); F10.139 Alcohol abuse with withdrawal, unspecified; Z53.29 Procedure and treatment not carried out because of patient's decision for other reasons; Y90.9 Presence of alcohol in blood, level not specified
CPT/HCPCS: 36415; 71045; 80048; 80053; 83690; 85025; 93005; 96361; 96374; 96375; 99285; G0378; G0480; G0481; G0482; J2060; J2405; J3411; J3475; J3490; J7030

== ENCOUNTER 2023-05-31 08:30 | Emergency (ER) | payer MEDICAID ==
[~2023-05-31] VITALS: Ht 177.8 cm; Wt 68.0 kg
[2023-05-31 08:36] VITALS: BP_SYST 134; PULSE 92; RESP 18; TEMP 98.3; O2SAT 100
[2023-05-31] MEDS ORDERED: NACL 0.9% 2,000 ML IV ONE (08:45)
[2023-05-31] MEDS ORDERED: LORazepam 2 MG/ML VIAL IVP ONE (08:45)
[2023-05-31 08:54] LABS: BASOPHILS % (AUTO) 0.5 % (0.0-2.0); EOSINOPHILS # (AUTO) 0.1 K/uL (0.0-0.4); EOSINOPHILS % (AUTO) 0.9 % (0.0-4.0); HEMATOCRIT 42.8 % (36-54); HEMOGLOBIN 13.6 g/dL (14.0-18.0); LYMPHOCYTES # (AUTO) 1.5 K/uL (1.0-5.5); LYMPHOCYTES % (AUTO) 26.1 % (20.5-51.5); MEAN CORPUSCULAR HEMOGLOBIN 28 pg (27-31); MEAN CORPUSCULAR HGB CONC 32 % (32-36); MEAN CORPUSCULAR VOLUME 88 fL (79.0-98.0); MONOCYTES # (AUTO) 0.4 K/uL (0.0-1.0); MONOCYTES % (AUTO) 6.3 % (1.7-9.3); NEUTROPHILS # (AUTO) 3.8 K/uL (1.8-7.7); NEUTROPHILS % (AUTO) 66.2 % (40.0-70.0); PLATELET COUNT (AUTO) 279 K/uL (130-430); RED BLOOD CELL COUNT(AUTO) 4.89 MIL/uL (4.2-6.2); RED CELL DISTRIBUTION WIDTH 14.1 % (9.0-15.0); WHITE BLOOD COUNT (AUTO) 5.8 K/uL (4.8-10.8)
[2023-05-31 09:07] LABS: ACETONE, SERUM NEGATIVE (NEGATIVE)
[2023-05-31 09:10] LABS: ANION GAP 21 (5-15); CARBON DIOXIDE 21 mmol/L (23-29); CHLORIDE 96 mmol/L (98-107); CREATININE 0.81 mg/dL (0.55-1.30); GFR AFRICAN AMERICAN 141 mL/min (>90); GFR NON AFRICAN-AMERICAN 117 mL/min (>90); GLUCOSE 85 mg/dL (74-106); POTASSIUM 3.3 mmol/L (3.5-5.1); SODIUM SERUM 138 mmol/L (136-145); UREA NITROGEN, BLOOD 6 mg/dL (8-21)
[2023-05-31 09:14] LABS: ALANINE AMINOTRANSFERASE 106 U/L (12-78); ALBUMIN 4.5 g/dL (3.4-4.8); ALCOHOL, BLOOD 67 mg/dL (<10); AMYLASE 46 U/L (0-100); ASPARTATE AMINOTRANSFERASE 145 U/L (10-37); LIPASE 39 U/L (16-77); PROTHROMBIN TIME 10.7 SECS (9.5-12.5); TOTAL BILIRUBIN 0.8 mg/dL (0.0-1.0); TOTAL PROTEIN, SERUM 7.8 g/dL (6.4-8.3)
[2023-05-31] MEDS ORDERED: ONDANSETRON HCL 4 MG/2 ML VIAL IVP ONE (09:15)
[2023-05-31] MEDS ORDERED: LORA-259 PO ×2 (11:01→11:28)
[2023-05-31 12:39] VITALS: BP_SYST 106; PULSE 89; RESP 16; TEMP 97.6; O2SAT 95
== END 2023-05-31 12:38 | disposition home or self-care (01) ==
LOC: SED 08:30
DX: F10.10 Alcohol abuse, uncomplicated (principal); R11.10 Vomiting, unspecified; R10.9 Unspecified abdominal pain; Z79.899 Other long term (current) drug therapy; Y90.6 Blood alcohol level of 120-199 mg/100 ml
CPT/HCPCS: 99284; 96374; 96361; 96375; 80053; 82009; 82150; 83690; 85025; 85610; 85730; 36415; 83605; G0482; J2060; J2405; J7030

== ENCOUNTER 2023-11-28 10:21 | Emergency (ER) | payer MEDICAID ==
[~2023-11-28] VITALS: Ht 177.8 cm; Wt 65.8 kg
[2023-11-28 10:21] VITALS: BP_SYST 137; PULSE 88; RESP 18; TEMP 96.5; O2SAT 98
[~2023-11-28 10:21] MED LIST changes: +LORA-259 PO
[2023-11-28] MEDS ORDERED: THIAMINE HCL 200 MG/2 ML VIAL ONE (10:52)
[2023-11-28] MEDS: NACL 0.9% 1,000 ML IV ONE (10:57)
[2023-11-28] MEDS: PHENobarbital SODIUM 65 MG/ML VIAL IVP ONE (10:59)
[2023-11-28] MEDS: ONDANSETRON HCL 4 MG/2 ML VIAL IVP ONE (11:00)
[2023-11-28] MEDS: FAMOTIDINE PF 20 MG/2 ML VIAL IVP ONE (11:00)
[2023-11-28] MEDS: FOLIC ACID 5 MG/ML VIAL IV ONE (11:01)
[2023-11-28] MEDS: THIAMINE HCL 100 MG in NS 50 ML IV ONE (11:01)
[2023-11-28 11:19] LABS: BASOPHILS % (AUTO) 0.3 % (0.0-2.0); EOSINOPHILS % (AUTO) 0.2 % (0.0-4.0); HEMATOCRIT 43.3 % (36-54); HEMOGLOBIN 14.6 g/dL (14.0-18.0); LYMPHOCYTES # (AUTO) 1.4 K/uL (1.0-5.5); LYMPHOCYTES % (AUTO) 15.9 % (20.5-51.5); MEAN CORPUSCULAR HEMOGLOBIN 28 pg (27-31); MEAN CORPUSCULAR HGB CONC 34 % (32-36); MEAN CORPUSCULAR VOLUME 84 fL (79.0-98.0); MONOCYTES # (AUTO) 0.6 K/uL (0.0-1.0); MONOCYTES % (AUTO) 6.8 % (1.7-9.3); NEUTROPHILS # (AUTO) 6.7 K/uL (1.8-7.7); NEUTROPHILS % (AUTO) 76.8 % (40.0-70.0); PLATELET COUNT (AUTO) 323 K/uL (130-430); RED BLOOD CELL COUNT(AUTO) 5.18 MIL/uL (4.2-6.2); RED CELL DISTRIBUTION WIDTH 15.6 % (9.0-15.0); WHITE BLOOD COUNT (AUTO) 8.8 K/uL (4.8-10.8)
[2023-11-28 11:26] LABS: ALBUMIN 4.6 g/dL (3.4-4.8); BILIRUBIN,DIRECT 0.4 mg/dL (0.0-0.3); CALCIUM 8.9 mg/dL (8.4-11.0); CREATININE 0.83 mg/dL (0.55-1.30); POTASSIUM 3.5 mmol/L (3.5-5.1); TOTAL BILIRUBIN 1.5 mg/dL (0.0-1.0)
[2023-11-28] MEDS ORDERED: PHEN60TA11 PO (12:32)
[2023-11-28] MEDS ORDERED: ONDA-8 TL (12:32)
[2023-11-28 13:31] VITALS: BP_SYST 132; PULSE 82; RESP 18; TEMP 97.3; O2SAT 98
== END 2023-11-28 12:45 | disposition home or self-care (01) ==
LOC: SED 10:21
DX: F10.239 Alcohol dependence with withdrawal, unspecified (principal); R11.2 Nausea with vomiting, unspecified; K70.9 Alcoholic liver disease, unspecified; Z79.899 Other long term (current) drug therapy; Y90.6 Blood alcohol level of 120-199 mg/100 ml
CPT/HCPCS: 99291; 96365; 96375; 80076; 80048; 83690; 85025; 36415; J3490 ×2; J2405; J3411; J2560

== ENCOUNTER 2024-02-29 09:30 | Emergency (ER) | payer MEDICAID ==
[~2024-02-29] VITALS: Ht 177.8 cm; Wt 70.3 kg
[~2024-02-29 09:30] MED LIST changes: +ONDA-8 TL; +PHEN60TA11 PO
[2024-02-29 09:38] VITALS: BP_SYST 140; PULSE 118; RESP 20; TEMP 97.4; O2SAT 97
[2024-02-29] MEDS ORDERED: FOLIC ACID 1 MG, THIAMINE HCL 100 MG, MAGNESIUM SULFATE 1 GM, MVI 10 ML in NACL 0.9% 1,... IV ONE (10:00)
[2024-02-29] MEDS: ONDANSETRON HCL 4 MG/2 ML VIAL IVP ONE (10:21)
[2024-02-29] MEDS: LORazepam 2 MG/ML VIAL IVP ONE (10:21)
[2024-02-29 10:25] LABS: BASOPHILS % (AUTO) 0.2 % (0.0-2.0); HEMATOCRIT 44.5 % (36-54); HEMOGLOBIN 14.7 g/dL (14.0-18.0); LYMPHOCYTES # (AUTO) 0.6 K/uL (1.0-5.5); LYMPHOCYTES % (AUTO) 5.6 % (20.5-51.5); MEAN CORPUSCULAR HEMOGLOBIN 29 pg (27-31); MEAN CORPUSCULAR HGB CONC 33 % (32-36); MEAN CORPUSCULAR VOLUME 87 fL (79.0-98.0); MONOCYTES # (AUTO) 0.4 K/uL (0.0-1.0); MONOCYTES % (AUTO) 4.3 % (1.7-9.3); NEUTROPHILS # (AUTO) 9.4 K/uL (1.8-7.7); NEUTROPHILS % (AUTO) 89.9 % (40.0-70.0); PLATELET COUNT (AUTO) 288 K/uL (130-430); RED BLOOD CELL COUNT(AUTO) 5.11 MIL/uL (4.2-6.2); RED CELL DISTRIBUTION WIDTH 14.6 % (9.0-15.0); WHITE BLOOD COUNT (AUTO) 10.5 K/uL (4.8-10.8)
[2024-02-29 10:56] LABS: ALBUMIN 4.8 g/dL (3.4-4.8); BILIRUBIN,DIRECT 0.5 mg/dL (0.0-0.3); CALCIUM 9.1 mg/dL (8.4-11.0); CREATININE 1.01 mg/dL (0.55-1.30); POTASSIUM 3.6 mmol/L (3.5-5.1); TOTAL BILIRUBIN 1.8 mg/dL (0.0-1.0); TOTAL PROTEIN, SERUM 8.3 g/dL (6.4-8.3)
[2024-02-29 11:16] LABS: BILIRUBIN,URINE 1+ (NEGATIVE); BLOOD, URINE 3+ (NEGATIVE); CLARITY/URINE CLEAR (CLEAR); COLOR,URINE YELLOW (YELLOW); GLUCOSE,URINE NEGATIVE (NEGATIVE); KETONES,URINE 3+ (NEGATIVE); LEUKOCYTE ESTERASE ,URINE NEGATIVE (NEGATIVE); NITRITE, URINE NEGATIVE (NEGATIVE); PROTEIN URINE 3+ (NEGATIVE); UROBILINOGEN,URINE 0.2 (0.2-1.0)
[2024-02-29 11:32] LABS: BARBITURATE, URINE NEGATIVE (NEG <=200); BENZODIAZEPINE, URINE NEGATIVE (NEG <=150); COCAINE, URINE NEGATIVE (NEG <=150); METHAMPHETAMINES SCREEN,URINE POSITIVE (NEG <=500); URINE AMPHETAMINE POSITIVE (NEG <=500); URINE METHADONE NEGATIVE (NEG <=200)
[2024-02-29 11:33] LABS: CANNABINOID, URINE POSITIVE (NEG <=50); OPIATE, URINE NEGATIVE (NEG <=100); PHENCYCLIDINE SCREEN,URINE NEGATIVE (NEG <=25); UR TRICYCLIC ANTIDEPRESSANTS NEGATIVE (NEG <=300); URINE OXYCODONE SCREEN NEGATIVE (NEG <=100)
[2024-02-29 11:46] LABS: BACTERIA,URINE None Seen /HPF (None Seen); HYALINE CASTS, URINE 0-10 /LPF (None Seen); WBC,URINE NONE SEEN /HPF (0-3)
[2024-02-29 11:47] LABS: MUCUS,URINE 1+ /LPF (None Seen)
[2024-02-29] MEDS: FOLIC ACID 1 MG, MVI 10 ML in NACL 0.9% 1,000 ML IV ONE (11:58)
[2024-02-29] MEDS: THIAMINE HCL 100 MG, MAGNESIUM SULFATE 1 GM in NS 100 ML IV ONE (11:58)
[2024-02-29] MEDS ORDERED: CHLO25CA11 PO (13:27)
[2024-02-29 13:40] VITALS: BP_SYST 128; PULSE 109; RESP 19; TEMP 97.4; O2SAT 98
== END 2024-02-29 13:41 | disposition home or self-care (01) ==
LOC: SED 09:30
DX: F10.139 Alcohol abuse with withdrawal, unspecified (principal); R74.8 Abnormal levels of other serum enzymes; E86.0 Dehydration; R10.13 Epigastric pain; R00.0 Tachycardia, unspecified; R11.10 Vomiting, unspecified; Z79.899 Other long term (current) drug therapy; Z79.2 Long term (current) use of antibiotics
CPT/HCPCS: 99284; 96365; 96375; 96366; 80307; 80076; 80048; 81001; 83690; 85025; 36415; 96368; J3490; J2060; J3475; J2405; J3411; J7030; 81000; 81015

== ENCOUNTER 2024-03-27 01:21 | Emergency (ER) | payer MEDICAID, OTHER ==
[~2024-03-27] VITALS: Ht 177.8 cm; Wt 68.0 kg
[~2024-03-27 01:21] MED LIST changes: +CHLO25CA11 PO
[2024-03-27 01:23] VITALS: BP_SYST 131; PULSE 116; RESP 20; TEMP 98.3; O2SAT 97
[2024-03-27] MEDS: NACL 0.9% 1,000 ML IV ONE (02:20)
[2024-03-27] MEDS: PANTOPRAZOLE SODIUM 40 MG/VIAL (PROTONIX) IVP ONE (02:20)
[2024-03-27] MEDS: ONDANSETRON HCL 4 MG/2 ML VIAL IVP ONE (02:20)
[2024-03-27 02:28] LABS: BASOPHILS % (AUTO) 0.2 % (0.0-2.0); HEMATOCRIT 48.1 % (36-54); HEMOGLOBIN 15.8 g/dL (14.0-18.0); LYMPHOCYTES # (AUTO) 1.4 K/uL (1.0-5.5); LYMPHOCYTES % (AUTO) 16.7 % (20.5-51.5); MEAN CORPUSCULAR HEMOGLOBIN 29 pg (27-31); MEAN CORPUSCULAR HGB CONC 33 % (32-36); MEAN CORPUSCULAR VOLUME 88 fL (79.0-98.0); MONOCYTES # (AUTO) 0.5 K/uL (0.0-1.0); MONOCYTES % (AUTO) 6.2 % (1.7-9.3); NEUTROPHILS # (AUTO) 6.4 K/uL (1.8-7.7); NEUTROPHILS % (AUTO) 76.9 % (40.0-70.0); PLATELET COUNT (AUTO) 271 K/uL (130-430); RED BLOOD CELL COUNT(AUTO) 5.47 MIL/uL (4.2-6.2); RED CELL DISTRIBUTION WIDTH 15.1 % (9.0-15.0); WHITE BLOOD COUNT (AUTO) 8.3 K/uL (4.8-10.8)
[2024-03-27 02:38] LABS: CALCIUM 9.5 mg/dL (8.4-11.0); CREATININE 0.77 mg/dL (0.55-1.30); POTASSIUM 3.5 mmol/L (3.5-5.1)
[2024-03-27 04:01] VITALS: BP_SYST 140; PULSE 86; RESP 19; O2SAT 95
== END 2024-03-27 04:01 | disposition home or self-care (01) ==
LOC: SED 01:21
DX: R11.2 Nausea with vomiting, unspecified (principal); F10.129 Alcohol abuse with intoxication, unspecified; Y90.6 Blood alcohol level of 120-199 mg/100 ml; Z79.899 Other long term (current) drug therapy; Z79.2 Long term (current) use of antibiotics
CPT/HCPCS: 99284; 96374; 96361; 96375; 80048; 85025; 36415; G0482; J2405; J2470; J7030

== ENCOUNTER 2024-03-27 06:50 | Inpatient (IN) | payer OTHER ==
[~2024-03-27] VITALS: Ht 175.3 cm; Wt 67.6 kg
[2024-03-27 06:53] VITALS: BP_SYST 134; PULSE 98; RESP 20; TEMP 97.7; O2SAT 97
[2024-03-27] MEDS ORDERED: DIAZEPAM 10 MG/2 ML DISP.SYRIN IVP ONE (07:45)
[2024-03-27] MEDS ORDERED: FOLIC ACID 1 MG, THIAMINE HCL 100 MG, MAGNESIUM SULFATE 1 GM, MVI 10 ML in NACL 0.9% 1,... IV ONE (07:45)
[2024-03-27] MEDS: ONDANSETRON HCL 4 MG/2 ML VIAL IVP ONE ×2 (07:58→14:35)
[2024-03-27] MEDS: NACL 0.9% 1,000 ML IV ONE (07:59)
[2024-03-27] MEDS: LORazepam 2 MG/ML VIAL IVP ONE ×2 (08:29→14:14)
[2024-03-27] MEDS: THIAMINE HCL 100 MG, MAGNESIUM SULFATE 1 GM in NS 100 ML IV ONE (09:41)
[2024-03-27] MEDS: FOLIC ACID 1 MG, MVI 10 ML in NACL 0.9% 1,000 ML IV ONE (09:42)
[2024-03-27 17:29] LABS: BASOPHILS % (AUTO) 0.2 % (0.0-2.0); EOSINOPHILS % (AUTO) 0.3 % (0.0-4.0); HEMATOCRIT 39.2 % (36-54); HEMOGLOBIN 12.9 g/dL (14.0-18.0); LYMPHOCYTES # (AUTO) 1.3 K/uL (1.0-5.5); LYMPHOCYTES % (AUTO) 16.2 % (20.5-51.5); MEAN CORPUSCULAR HEMOGLOBIN 29 pg (27-31); MEAN CORPUSCULAR HGB CONC 33 % (32-36); MEAN CORPUSCULAR VOLUME 88 fL (79.0-98.0); MONOCYTES # (AUTO) 0.7 K/uL (0.0-1.0); MONOCYTES % (AUTO) 8.2 % (1.7-9.3); NEUTROPHILS % (AUTO) 75.1 % (40.0-70.0); PLATELET COUNT (AUTO) 192 K/uL (130-430); RED BLOOD CELL COUNT(AUTO) 4.44 MIL/uL (4.2-6.2); RED CELL DISTRIBUTION WIDTH 15.1 % (9.0-15.0)
[2024-03-27 17:40] LABS: ALANINE AMINOTRANSFERASE 55 U/L (12-78); ALBUMIN 3.8 g/dL (3.4-4.8); ANION GAP 13 (5-15); ASPARTATE AMINOTRANSFERASE 76 U/L (10-37); CARBON DIOXIDE 26 mmol/L (23-29); CHLORIDE 98 mmol/L (98-107); CREATININE 0.71 mg/dL (0.55-1.30); GFR AFRICAN AMERICAN 163 mL/min (>90); GFR NON AFRICAN-AMERICAN 135 mL/min (>90); GLUCOSE 80 mg/dL (74-106); POTASSIUM 3.3 mmol/L (3.5-5.1); SODIUM SERUM 137 mmol/L (136-145); TOTAL BILIRUBIN 1.5 mg/dL (0.0-1.0); TOTAL PROTEIN, SERUM 6.5 g/dL (6.4-8.3); UREA NITROGEN, BLOOD 8 mg/dL (8-21)
[2024-03-27 17:52] LABS: ALCOHOL, BLOOD < 3 mg/dL (<10)
[2024-03-27] MEDS: chlordiazePOXIDE HCL 25 MG CAPSULE PO SCH (18:03)
[2024-03-27] MEDS: PANTOPRAZOLE SODIUM 40 MG/VIAL (PROTONIX) IVP SCH (19:23)
[2024-03-27] MEDS: NACL 0.9% 1,000 ML IV SCH (19:24)
[2024-03-27 22:00] VITALS: BP_SYST 137; PULSE 79; RESP 20; TEMP 97.5; O2SAT 95
[2024-03-27] MEDS: KCL 40 mEq in 100 mL (PREMIX) 100 ML IV ONE (22:26)
[2024-03-28 00:46] VITALS: BP_SYST 137; PULSE 75; RESP 18; TEMP 98.3; O2SAT 95
[2024-03-28 08:00] VITALS: BP_SYST 121; PULSE 68; RESP 16; TEMP 98; O2SAT 96; O2SAT 98
[2024-03-28 08:35] LABS: HEMOGLOBIN 13.7 g/dL (14.0-18.0)
[2024-03-28 08:42] LABS: MEAN CORPUSCULAR HEMOGLOBIN 29 pg (27-31); MEAN CORPUSCULAR HGB CONC 33 % (32-36); MEAN CORPUSCULAR VOLUME 89 fL (79.0-98.0); PLATELET COUNT (AUTO) 178 K/uL (130-430); RED BLOOD CELL COUNT(AUTO) 4.72 MIL/uL (4.2-6.2); RED CELL DISTRIBUTION WIDTH 14.4 % (9.0-15.0); WHITE BLOOD COUNT (AUTO) 5.4 K/uL (4.8-10.8)
[2024-03-28 08:53] LABS: ALBUMIN 3.7 g/dL (3.4-4.8); CALCIUM 8.3 mg/dL (8.4-11.0); CREATININE 0.75 mg/dL (0.55-1.30); TOTAL BILIRUBIN 1.4 mg/dL (0.0-1.0); TOTAL PROTEIN, SERUM 6.7 g/dL (6.4-8.3)
[2024-03-28 10:55] LABS: BASOPHILS % (MANUAL) 0 % (0-2); EOSINOPHILS % (MANUAL) 0 % (0-7); LYMPHOCYTES % (MANUAL) 16 % (20-46); MONOCYTES % (MANUAL) 11 % (0-11); PLATELET ESTIMATE ADEQUATE (ADEQUATE); TARGET CELLS FEW
[2024-03-28 10:56] LABS: OVALOCYTES FEW; STOMATOCYTES MODERATE
[2024-03-28] MEDS: THIAMINE HCL 100 MG TABLET PO SCH (11:35)
[2024-03-28] MEDS: FOLIC ACID 1 MG TABLET PO SCH (11:35)
[2024-03-28] MEDS: ONDANSETRON HCL 4 MG/2 ML VIAL IVP PRN (11:36)
[2024-03-28] MEDS: LORazepam 2 MG/ML VIAL IVP PRN (11:37)
[2024-03-28] MEDS: VITAMIN B COMPLEX WITH C TAB/CAP PO SCH (11:53)
[2024-03-28 12:28] VITALS: BP_SYST 135; PULSE 77; RESP 17; TEMP 97.8; O2SAT 97
[2024-03-28 16:18] VITALS: BP_SYST 125; PULSE 62; RESP 16; TEMP 97.9; O2SAT 98
[2024-03-28] MEDS: NACL 0.9% 1,000 ML IV SCH (17:57)
[2024-03-28 20:00] VITALS: BP_SYST 129; PULSE 75; RESP 18; TEMP 98.3; O2SAT 95; O2SAT 96
[2024-03-28] MEDS: PANTOPRAZOLE SODIUM 40 MG/VIAL (PROTONIX) IVP SCH (21:22)
[2024-03-29 00:38] VITALS: BP_SYST 119; PULSE 75; RESP 16; TEMP 96.8; O2SAT 95
[2024-03-29 08:00] VITALS: BP_SYST 107; PULSE 63; RESP 18; TEMP 97.6; O2SAT 97
[2024-03-29 08:28] LABS: BASOPHILS % (AUTO) 0.5 % (0.0-2.0); EOSINOPHILS # (AUTO) 0.3 K/uL (0.0-0.4); EOSINOPHILS % (AUTO) 5.2 % (0.0-4.0); HEMATOCRIT 42.8 % (36-54); LYMPHOCYTES % (AUTO) 18.7 % (20.5-51.5); MEAN CORPUSCULAR HEMOGLOBIN 29 pg (27-31); MEAN CORPUSCULAR HGB CONC 33 % (32-36); MEAN CORPUSCULAR VOLUME 89 fL (79.0-98.0); MONOCYTES # (AUTO) 0.3 K/uL (0.0-1.0); MONOCYTES % (AUTO) 6.2 % (1.7-9.3); NEUTROPHILS # (AUTO) 3.6 K/uL (1.8-7.7); NEUTROPHILS % (AUTO) 69.4 % (40.0-70.0); PLATELET COUNT (AUTO) 171 K/uL (130-430); RED BLOOD CELL COUNT(AUTO) 4.81 MIL/uL (4.2-6.2); RED CELL DISTRIBUTION WIDTH 14.2 % (9.0-15.0); WHITE BLOOD COUNT (AUTO) 5.1 K/uL (4.8-10.8)
[2024-03-29 08:50] LABS: CALCIUM 8.7 mg/dL (8.4-11.0); CREATININE 0.77 mg/dL (0.55-1.30); POTASSIUM 3.2 mmol/L (3.5-5.1)
[2024-03-29] MEDS: chlordiazePOXIDE HCL 25 MG CAPSULE PO ONE (09:25)
[2024-03-29 10:30] LABS: PHOSPHORUS 3.7 mg/dL (2.7-4.5)
[2024-03-29] MEDS ORDERED: PROI40 PO (11:43)
[2024-03-29] MEDS ORDERED: Thiamine Hcl PO (11:43)
[2024-03-29] MEDS ORDERED: B-CO1TAB3 PO (11:43)
[2024-03-29] MEDS ORDERED: GABA-529 PO (11:53)
[2024-03-29] MEDS ORDERED: NEU300 PO (11:53)
[2024-03-29] MEDS ORDERED: GABA-331 PO (11:53)
[2024-03-29] MEDS ORDERED: NALT50TA5 PO (12:00)
[2024-03-29] MEDS ORDERED: [UNRECOGNIZED DRUG - CODE] PO (12:02)
[2024-03-29] MEDS: POTASSIUM CHLORIDE 20 MEQ TABLET.ER PO ONE (13:26)
[2024-03-29 22:01] LABS: TOTAL IRON BIND. CAPACITY 319 ug/dL (250-450)
[2024-03-31 02:06] LABS: HEPATITIS B CORE AB, TOTAL Negative (Negative); HEPATITIS B SURFACE AG Negative (Negative); HEPATITIS C VIRUS AB Non Reactive (Non Reactive)
== END 2024-03-29 15:30 | disposition home or self-care (01) | DRG 253 ==
LOC: SED 06:50 → STU 14:33
PROVIDERS: ADMIT Student in an Organized Health Care Education/Training Program; ATTEND Student in an Organized Health Care Education/Training Program
DX: K92.2 Gastrointestinal hemorrhage, unspecified (principal); E63.8 Other specified nutritional deficiencies; D62 Acute posthemorrhagic anemia; E86.0 Dehydration; F10.930 Alcohol use, unspecified with withdrawal, uncomplicated; F12.90 Cannabis use, unspecified, uncomplicated; R74.01 Elevation of levels of liver transaminase levels; F15.10 Other stimulant abuse, uncomplicated; Z72.0 Tobacco use; Z79.899 Other long term (current) drug therapy; Z88.8 Allergy status to other drugs, medicaments and biological substances; E87.6 Hypokalemia
CPT/HCPCS: 36415; 71045; 76705; 80048; 80053; 83540; 83550; 83690; 83735; 84100; 85007; 85025; 85027; 86704; 86706; 86708; 86803; 87340; 93005; 99285; G0378; G0482; J2060; J2405; J2470; J3360; J3411; J3475; J3480; J3490; J7030